=== PATIENT | male | born 1980 | race Two or more races ===

== ENCOUNTER 2023-08-28 23:36 | Inpatient (IN) | payer MEDICAID ==
[~2023-08-28] VITALS: Ht 185.4 cm; Wt 127.0 kg
[2023-08-29] VITALS (10 sets, daily range): BP systolic 124–180; BP diastolic 72–96; PULSE 72–86; RESP 15–20; TEMP 97.6–97.8; O2SAT 96–100
[2023-08-29] MEDS ORDERED: INSU100I31 SQ (00:01)
[2023-08-29] MEDS ORDERED: DAPA5TAB PO (00:01)
[2023-08-29] MEDS ORDERED: BACL10TA PO (00:01)
[2023-08-29] MEDS ORDERED: METF-438 PO (00:01)
[2023-08-29] MEDS ORDERED: AMLO5TAB16 PO (00:01)
[2023-08-29] MEDS ORDERED: RISA150P (00:01)
[2023-08-29] MEDS ORDERED: LOSA1TAB41 PO (00:01)
[2023-08-29 00:50] LABS: ALBUMIN 3.3 G/DL (3.4-5.0); ANION GAP 17 (8-16); BASOPHILS % (AUTO) 0.6 % (0-1); BLOOD UREA NITROGEN 15 MG/DL (7-18); BUN/CREATININE RATIO 14.6 (10.0-20.0); CALCIUM 8.6 MG/DL (8.5-10.1); CHLORIDE 96 MMOL/L (99-107); CREATININE 1.03 MG/DL (0.60-1.10); EOSINOPHILS # (AUTO) 0.1 X10'3 (0-0.9); EOSINOPHILS % (AUTO) 1.1 % (0-6); GLUCOSE 150 MG/DL (70-104); HEMOGLOBIN 13.3 g/dl (14.0-17.9); LYMPHOCYTES % (AUTO) 14.6 % (21-51); MEAN CORPUSCULAR HGB CONC 34.1 g/dL (33.0-36.5); MEAN CORPUSCULAR VOLUME 90.8 FL (78-98); MEAN PLATELET VOLUME 7.3 FL (7.4-10.4); MONOCYTES # (AUTO) 0.7 X10'3 (0-0.9); MONOCYTES % (AUTO) 9.2 % (2-12); NEUTROPHILS # (AUTO) 5.3 X10'3 (1.8-7.7); NEUTROPHILS % (AUTO) 74.5 % (42-75); PLATELET COUNT 81 X10'3 (140-440); POTASSIUM 4.5 MMOL/L (3.5-5.1); RED CELL DISTRIBUTION WIDTH 15.2 % (11.5-14.5); SODIUM 135 MMOL/L (135-145); WHITE BLOOD COUNT 7.1 X10'3 (4.5-11.0); eCRCL 105 ML/MIN; eGFR 79 ML/MIN
[2023-08-29] MEDS: octreotide inj. 1,250 MCG in normal saline 250ml IV soln 250 ML IV SCH (00:50)
[2023-08-29 00:52] LABS: APTT 27 SECONDS (22-32); INR 1.1 INR; PROTHROMBIN TIME 11.2 SECONDS (9.0-12.0)
[2023-08-29] MEDS ORDERED: acetaminophen 325mg tablet PO PRN (02:30)
[2023-08-29] MEDS ORDERED: magnesium 4gm in 100ml NS 100 ML IV PRN (02:30)
[2023-08-29] MEDS ORDERED: potassium Cl 40MEQ/1/2NS 520ml 520 ML IV PRN (02:30)
[2023-08-29] MEDS ORDERED: mag hydrox/Alum hydrox/simeth 30ml oral suspension PO PRN (02:30)
[2023-08-29] MEDS ORDERED: morphine 2 MG/ML inj. syringe IV PRN (02:30)
[2023-08-29] MEDS ORDERED: magnesium hydroxide 30ml (MOM) UD suspension PO PRN (02:30)
[2023-08-29] MEDS ORDERED: magnesium Cl slow-release 64mg tablet PO PRN (02:30)
[2023-08-29] MEDS ORDERED: potassium Cl 20 mEq SR tablet PO PRN ×2 (02:30)
[2023-08-29] MEDS ORDERED: magnesium 2GM in 50ml NS 50 ML IV PRN (02:30)
[2023-08-29] MEDS ORDERED: haloperidol 5mg tablet PO PRN (02:40)
[2023-08-29] MEDS: normal saline 1000ml 1,000 ML IV SCH (03:08)
[2023-08-29] MEDS ORDERED: DEXTROSE 15 GM of carb/4 tabs (each vial/BOTTLE has 4 tablets) PO PRN ×2 (03:10)
[2023-08-29] MEDS ORDERED: glucagon, human recombinant 1mg kit SUBCUT PRN (03:10)
[2023-08-29] MEDS ORDERED: dextrose 50%-water 50ml dispensing syringe IV PRN ×2 (03:10)
[2023-08-29 03:12] LABS: HEMOGLOBIN A1C 9.8 % (4.5-6.2)
[2023-08-29] MEDS: ondansetron/PF 4mg/2ml inj IV PRN (03:16)
[2023-08-29 03:19] LABS: ALANINE AMINOTRANSFERASE 63 U/L (12-78); ALBUMIN/GLOBULIN RATIO 0.8 (1.1-1.5); ALKALINE PHOSPHATASE 103 IU/L (46-116); ASPARTATE AMINO TRANSFERASE 46 U/L (10-37); BILIRUBIN,DIRECT 0.3 MG/DL (0-0.3); BILIRUBIN,TOTAL 1.2 MG/DL (0.1-1.0); LIPASE 60 U/L (16-77); MAGNESIUM 2.2 MG/DL (1.5-2.4); PHOSPHORUS 2.8 MG/DL (2.3-4.5); PRO BRAIN NATRIURETIC PEPTIDE < 30 PG/ML (0-125); TOTAL PROTEIN 7.5 G/DL (6.4-8.2)
[2023-08-29] MEDS: hydrALAZINE 20mg/ml inj. IV PRN (05:46)
[2023-08-29] MEDS: INSULIN LISPRO 100 UNIT/ML INSULN.PEN MULTI-DOSE SQ SCH (07:00)
[2023-08-29] MEDS: docusate sod 100mg capsule PO SCH (07:03)
[2023-08-29] MEDS: pantoprazole 40 MG vial IV SCH (07:13)
[2023-08-29] MEDS: CefTRIAXone/D5W-Rocephin 1gm 50 ML IV SCH (07:13)
[2023-08-29] MEDS: thiamine 100mg/ml 2ml inj. IV SCH (07:13)
[2023-08-29] MEDS: diazepam inj 5 MG/ML inj. IV PRN (07:24)
[2023-08-29 07:28] LABS: BASOPHILS # (AUTO) 0.1 X10'3 (0-0.2); BASOPHILS % (AUTO) 0.8 % (0-1); EOSINOPHILS # (AUTO) 0.2 X10'3 (0-0.9); EOSINOPHILS % (AUTO) 3.7 % (0-6); HEMATOCRIT 39.3 % (42.0-52.0); HEMOGLOBIN 13.1 g/dl (14.0-17.9); LYMPHOCYTES # (AUTO) 1.1 X10'3 (1.1-4.8); LYMPHOCYTES % (AUTO) 16.5 % (21-51); MEAN CORPUSCULAR HEMOGLOBIN 30.6 PG (27.0-31.0); MEAN CORPUSCULAR HGB CONC 33.4 g/dL (33.0-36.5); MEAN CORPUSCULAR VOLUME 91.7 FL (78-98); MEAN PLATELET VOLUME 7.2 FL (7.4-10.4); MONOCYTES # (AUTO) 0.7 X10'3 (0-0.9); MONOCYTES % (AUTO) 10.5 % (2-12); NEUTROPHILS # (AUTO) 4.4 X10'3 (1.8-7.7); NEUTROPHILS % (AUTO) 68.5 % (42-75); PLATELET COUNT 76 X10'3 (140-440); RED BLOOD COUNT 4.29 X10'6 (4.70-6.10); RED CELL DISTRIBUTION WIDTH 15.1 % (11.5-14.5); WHITE BLOOD COUNT 6.5 X10'3 (4.5-11.0)
[2023-08-29] MEDS: K and/or MAG REPLACEMENT MC SCH (08:00)
[2023-08-29] MEDS: multivitamins, therapeutics tablet PO SCH (08:00)
[2023-08-29] MEDS: folic acid 1mg/0.2ml inj IV SCH (10:00)
[2023-08-29 11:09] LABS: OCCULT BLOOD STOOL POSITIVE (Neg)
[2023-08-29] MEDS ORDERED: MIDAZolam 1 MG/ML 5ML VIAL ONE (16:22)
[2023-08-29] MEDS ORDERED: LIDOcaine 2% Viscous 15ml cup ONE (16:22)
[2023-08-29] MEDS ORDERED: fentaNYL/PF 50MCG/1 ML 2ML syringe ONE (16:22)
[2023-08-29] MEDS ORDERED: diphenhydrAMINE 50 mg/ml inj ONE (16:22)
[2023-08-29] MEDS ORDERED: insulin glargine (Lantus) pen - multi-dose SQ SCH (21:00)
[2023-09-01] MEDS ORDERED: thiamine 100mg tablet PO SCH (08:00)
[2023-09-02] MEDS ORDERED: folic acid 1mg tablet PO SCH (08:00)
== END 2023-08-29 20:30 | disposition left against medical advice (07) | DRG 253 ==
LOC: ER 23:38 → ED HOLD 08-29 02:37 → PCU 3S 08-29 05:00
PROVIDERS: ADMIT Surgery; ATTEND Internal Medicine
DX: K92.2 Gastrointestinal hemorrhage, unspecified (principal); K74.60 Unspecified cirrhosis of liver; E11.9 Type 2 diabetes mellitus without complications; F10.239 Alcohol dependence with withdrawal, unspecified; Y90.9 Presence of alcohol in blood, level not specified; Z53.29 Procedure and treatment not carried out because of patient's decision for other reasons; F12.10 Cannabis abuse, uncomplicated; I10 Essential (primary) hypertension; Z87.891 Personal history of nicotine dependence; Z88.8 Allergy status to other drugs, medicaments and biological substances; Z90.79 Acquired absence of other genital organ(s)
CPT/HCPCS: 36415; 43239; 80048; 80076; 82272; 82948; 83036; 83605; 83690; 83735; 83880; 84100; 84145; 85025; 85610; 85730; 86885; 86900; 86901; 87040; 87081; 93005; 99152; 99285; A4620; C9113; G0378; J0360; J0696; J1200; J1815; J2250; J2354; J2405; J3010; J3360; J3411; J3490; J7030; J7040; J7050